=== PATIENT | male | born 1955 | race Caucasian/White ===

== ENCOUNTER 2020-08-01 09:04 | Emergency (ER) | payer OTHER ==
[~2020-08-01] VITALS: Ht 172.7 cm; Wt 79.4 kg
[2020-08-01] MEDS ORDERED: PAXIL CR25 MG (09:15)
[2020-08-01] MEDS ORDERED: TRANXENE T-TAB7.5 MG (09:15)
[2020-08-01] MEDS ORDERED: DILTIAZEM ER240 M3 (09:15)
[2020-08-01] MEDS ORDERED: TAMS0.4C PO (12:20)
[2020-08-01] MEDS ORDERED: KETO10TA2 PO (12:20)
== END 2020-08-01 13:05 | disposition home or self-care (01) ==
LOC: ER 09:04
DX: N20.0 Calculus of kidney (principal); R10.31 Right lower quadrant pain